=== PATIENT | female | born 1980 | race American Indian/Alaskan Native ===

== ENCOUNTER 2018-06-19 02:22 | Emergency (ER) | payer SELFPAY ==
[2018-06-19] MEDS ORDERED: Bacitracin 500 Units/gm Oint Foilpak UD TOP STA (02:50)
[2018-06-19] MEDS ORDERED: Bacitracin 500 Units/gm Oint Foilpak UD ONE (03:01)
[2018-06-19] MEDS ORDERED: Oxycodone/Acetaminophen 5/325 mg Tab PO STA (03:57)
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
[2018-06-19] MEDS ORDERED: Oxycodone/Acetaminophen 5/325 mg Tab ONE (04:05)
[2018-06-19 04:33] VITALS: BP 132/72; PULSE 76; RESP 20; TEMP 98.2
[2018-06-19 04:53] VITALS: O2SAT 95
--- NOTE | 2018-06-19 08:53 | RAD ---
Date of service: 06/19/2018 PROCEDURE: Right Knee Radiographs. HISTORY: fall COMPARISON: None. FINDINGS: BONES: No acute fracture or destructive bony lesion identified. JOINTS: Normal. No osteoarthritis. JOINT EFFUSION: None. OTHER FINDINGS: None. IMPRESSION: Unremarkable radiographs of the right knee.
== END 2018-06-19 04:32 | disposition home or self-care (01) ==
LOC: C.ER 02:22
DX: S81.001A Unspecified open wound, right knee, initial encounter (principal); W17.2XXA Fall into hole, initial encounter; Y93.55 Activity, bike riding